=== PATIENT | female | born 1955 | race Caucasian/White ===

== ENCOUNTER → 2017-06-13 | Outpatient (CLI) | payer BC ==
--- NOTE | 2017-06-13 15:34 | RAD ---
DATE: 06/13/2017 EXAM: DIGITAL DIAGNOSTIC LT, BREAST LEFT HISTORY: Suspicious screening study COMPARISON: 05/26/2017 This study was interpreted with the benefit of Computerized Aided Detection (CAD). The breast parenchyma is heterogeneously dense, which could reduce sensitivity of mammography. Breast parenchyma level C. FINDINGS: Comparison images from an outside study dated 05/26/2017 demonstrated a tiny smooth oval-shaped superficial nodule in the medial left periareolar region in only the CC projection. The outside tomograms are unavailable at this time for direct correlation. We performed a spot compression cc view of this region and this nodule could not be redemonstrated. Current CC tomograms and a straight mediolateral view were also obtained and did not demonstrate a discrete nodule in this region. Left breast ultrasound, 06/13/2017: A targeted ultrasound exam of the medial left periareolar region was performed. Normal heterogeneous breast shadows are evident. No breast nodule was identified. IMPRESSION: No mammographic or sonographic abnormality was identified in the area of concern described on the outside screening study. Routine follow-up mammography in one year is suggested. It is recommended that the screening mammography be performed at a site also capable of performing diagnostic mammography, if necessary. BI-RADS CATEGORY: 1 NEGATIVE RECOMMENDED FOLLOW-UP: 12M 12 MONTH FOLLOW-UP PQRS compliance statement: Patient information was entered into a reminder system with a target due date for the next mammogram. Mammography is a sensitive method for finding small breast cancers, but it does not detect them all and is not a substitute for careful clinical examination. A negative mammogram does not negate a clinically suspicious finding and should not result in delay in biopsying a clinically suspicious abnormality. "Our facility is accredited by the [employer] Mammography Program."
== END | disposition home or self-care (01) ==
LOC: MAMMO 13:41
DX: R92.8 Other abnormal and inconclusive findings on diagnostic imaging of breast (principal)
CPT/HCPCS: 76641; G0206; 77065